=== PATIENT | male | born 1950 | race Caucasian/White ===

== ENCOUNTER 2021-01-04 10:16 | Inpatient (IN) | payer OTHER ==
[~2021-01-04] VITALS: Ht 172.7 cm; Wt 70.3 kg
[2021-01-04] MEDS ORDERED: MULTI VITAMIN1 EACH PO (10:30)
== END 2021-01-10 13:35 | disposition home or self-care (01) | DRG 390 ==
LOC: ER 10:16 → SURG 19:21
PROVIDERS: ADMIT Internal Medicine; ATTEND Internal Medicine
PROC: BW2110Z Computerized Tomography (CT Scan) of Abdomen and Pelvis using Low Osmolar Contrast, Unenhanced and Enhanced (ICD-10-PCS; principal; 2021-01-05)
DX: K56.690 Other partial intestinal obstruction (principal); K52.89 Other specified noninfective gastroenteritis and colitis; E86.0 Dehydration; Z20.822 Contact with and (suspected) exposure to COVID-19

== ENCOUNTER 2021-08-28 11:08 | Outpatient (CLI) | payer OTHER ==
[~2021-08-28 11:08] MED LIST: MULTI VITAMIN1 EACH PO
== END 2021-08-28 11:14 | disposition home or self-care (01) ==
LOC: RAD 11:08
PROVIDERS: ATTEND Internal Medicine Cardiovascular Disease
DX: J44.9 Chronic obstructive pulmonary disease, unspecified (principal)

== ENCOUNTER 2021-08-30 07:58 | Outpatient (CLI) | payer OTHER | END 2021-08-30 08:04 | disposition home or self-care (01) | LOC: LAB 07:58 | PROVIDERS: ATTEND Internal Medicine Cardiovascular Disease | DX: Z12.11 Encounter for screening for malignant neoplasm of colon (principal); E03.9 Hypothyroidism, unspecified; I10 Essential (primary) hypertension; E11.9 Type 2 diabetes mellitus without complications; E78.2 Mixed hyperlipidemia; E55.9 Vitamin D deficiency, unspecified; N40.0 Benign prostatic hyperplasia without lower urinary tract symptoms ==

== ENCOUNTER 2022-05-21 09:18 | Outpatient (CLI) | payer OTHER | END 2022-05-21 10:02 | disposition home or self-care (01) | LOC: LAB 09:18 | PROVIDERS: ATTEND Internal Medicine Cardiovascular Disease | DX: E03.9 Hypothyroidism, unspecified (principal); I10 Essential (primary) hypertension; E11.9 Type 2 diabetes mellitus without complications; E78.2 Mixed hyperlipidemia; N40.0 Benign prostatic hyperplasia without lower urinary tract symptoms; E55.9 Vitamin D deficiency, unspecified ==